=== PATIENT | female | born 1990 | race Hispanic/Latino ===

== ENCOUNTER 2021-11-10 08:44 | Day surgery (SDC) | payer OTHER ==
[~2021-11-10] VITALS: Ht 162.6 cm; Wt 86.6 kg
[~2021-11-10 08:44] MED LIST: LR 1,000 ML IV ONE
[2021-11-10 09:20] LABS: HEMATOCRIT 40.3 % (36.0-47.0); HEMOGLOBIN 12.8 g/dl (12.0-15.5); MEAN CORPUSCULAR HEMOGLOBIN 27.4 pg (27.0-33.0); MEAN CORPUSCULAR HGB CONC 31.8 g/dl (32.0-36.5); MEAN CORPUSCULAR VOLUME 86.3 fl (80.0-96.0); PLATELET COUNT, AUTOMATED 151 10^3/uL (150-450); RED BLOOD COUNT 4.67 10^6/uL (4.00-5.40); WHITE BLOOD COUNT 7.7 10^3/uL (4.0-10.0)
[2021-11-10] MEDS ORDERED: KETOROLAC 60MG 2ML VIAL As Ordered ONE (09:30)
[2021-11-10] MEDS ORDERED: dexameTHASONE 4 MG/ML 1ML VIAL (J1100 PER 1MG) As Ordered ONE (09:30)
[2021-11-10] MEDS ORDERED: LIDOCAINE 2% 100MG/5ML SDV (FOR ANES.) As Ordered ONE (09:30)
[2021-11-10] MEDS ORDERED: ONDANSETRON 4MG/2ML VIAL As Ordered ONE (09:30)
[2021-11-10] MEDS ORDERED: MIDAZOLAM INJ 2MG/2ML VIAL (J2250 PER 1MG) As Ordered ONE (09:31)
[2021-11-10] MEDS ORDERED: fentaNYL 100 MCG/2 ML INJECTION As Ordered ONE (09:31)
[2021-11-10] MEDS ORDERED: propofoL 500 MG/50 ML VIAL As Ordered ONE (09:31)
[2021-11-10] MEDS ORDERED: LIDOCAINE W/EPINEPHRINE 1% 20ML VIAL As Ordered ONE (10:06)
[2021-11-10 10:08] LABS: HCG, SERUM QUALITATIVE NEGATIVE (NEGATIVE)
[2021-11-10] MEDS ORDERED: IODINE STRONG SOLN 15 ML BTL As Ordered ONE (10:23)
[2021-11-10 15:24] VITALS: BP 121/55
== END 2021-11-10 12:50 | disposition home or self-care (01) ==
LOC: M SDC 08:44
PROVIDERS: ATTEND Obstetrics & Gynecology
DX: D06.0 Carcinoma in situ of endocervix (principal); Z87.891 Personal history of nicotine dependence
CPT/HCPCS: 36415; 57522; 84703; 85027; 88305; 88307; J1100; J1885; J2250; J2405; J3010